=== PATIENT | female | born 1985 | race African-American/Black ===

== ENCOUNTER 2016-04-14 10:49 | Emergency (ER) | payer OTHER ==
[2016-04-14] MEDS ORDERED: Ketorolac Tromethamine 60 MG/2 ML VIAL ONE (11:24)
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
== END 2016-04-14 11:29 | disposition home or self-care (01) ==
LOC: NAV ERS 10:49
DX: R51 Headache (principal)
CPT/HCPCS: 99283; J1885

== ENCOUNTER 2016-05-04 17:12 | Emergency (ER) | payer OTHER ==
[2016-05-04] MEDS ORDERED: HYDROcodone/Acetaminophen 10/325 mg Tablet ONE (17:27)
[2016-05-04] MEDS ORDERED: Ciprofloxacin 500 MG TAB ONE (17:28)
== END 2016-05-04 17:39 | disposition home or self-care (01) ==
LOC: NAV ERS 17:12
DX: K02.9 Dental caries, unspecified (principal)
CPT/HCPCS: 99282

== ENCOUNTER → 2016-05-29 | Emergency (ER) | payer OTHER | LOC: NAV ERS 11:23 | DX: B86 Scabies (principal) | CPT/HCPCS: 99282 ==

== ENCOUNTER 2016-10-18 16:19 | Emergency (ER) | payer OTHER ==
[2016-10-18 17:50] LABS: PTT 30.9 SEC (22.9-36.1); Prothrombin Time 12.9 SEC (12.0-14.7)
[2016-10-18 17:51] LABS: D-Dimer Test 0.36 *mcg/mL (0.27-0.43)
[2016-10-18 17:56] LABS: Anion Gap 15 mmol/L (10-20); BUN (Urea Nitrogen) 9 mg/dL (7.0-18.7); Calc. Creatinine Clearance 0 mL/min (70-130); Calcium 9.5 mg/dL (7.8-10.44); Carbon Dioxide 24 mmol/L (22-29); Chloride 104 mmol/L (98-107); Estimated GFR-MDRD Greater than 90; Glucose 68 mg/dL (70-105); Potassium 3.5 mmol/L (3.5-5.1); Sodium 139 mmol/L (136-145)
[2016-10-18 17:58] LABS: #Basophils 0.1 thou/uL (0.0-0.2); #Eosinphils 0.3 thou/uL (0.0-0.7); #Lymphocytes 2.2 thou/uL (1.20-3.40); #Monocytes 0.7 thou/uL (0.11-0.59); #Neutrophils 5.6 thou/uL (1.40-6.50); %Basophils 1.4 % (0.0-1.0); %Eosinophils 3.3 % (0.0-10.0); %Lymphocytes 24.6 % (21.0-51.0); %Monocytes 8.1 % (0.0-10.0); %Neutrophils 62.6 % (42.0-75.0); Hemoglobin 13.1 g/dL (12.0-16.0); Mean Corpuscular HGB CONC 30.6 g/dL (32.0-36.0); Mean Corpuscular Hemoglobin 23.3 pg (27.0-31.0); Mean Corpuscular Volume 76.3 fl (81.0-99.0); Mean Platelet Volume 6.4 fL (7.4-10.4); Platelet Count 526 thou/uL (130-400); RBC Distribution Width 15.2 % (11.5-14.5); Red Blood Cell (RBC) Count 5.64 mill/uL (4.20-5.40)
== END 2016-10-18 18:00 | disposition home or self-care (01) ==
LOC: NAV ERS 16:19
DX: M79.662 Pain in left lower leg (principal); M79.661 Pain in right lower leg; M25.572 Pain in left ankle and joints of left foot; M25.571 Pain in right ankle and joints of right foot; M79.672 Pain in left foot; M79.671 Pain in right foot
CPT/HCPCS: 80048; 85025; 85379; 85610; 85730; 99283

== ENCOUNTER 2016-11-09 21:50 | Emergency (ER) | payer OTHER | END 2016-11-09 22:40 | disposition home or self-care (01) | LOC: NAV ERS 21:50 | DX: G43.909 Migraine, unspecified, not intractable, without status migrainosus (principal) | CPT/HCPCS: 99283 ==

== ENCOUNTER 2016-12-17 17:58 | Emergency (ER) | payer OTHER ==
[2016-12-17] MEDS ORDERED: Ondansetron ODT 4 MG TAB ONE ×2 (18:18→19:03)
[2016-12-17 18:29] LABS: Pregnancy Test - Urine (BHCG) Negative (Negative); Pregu Control Bar Appear? YES (CONTROL BAR); Specific Gravity 1.032 (1.002-1.036)
[2016-12-17 18:30] LABS: Pregu Control Background? CLEAR/WHITE (CLR/WHITE)
[2016-12-17 19:47] LABS: #Lymphocytes 1.4 thou/uL (1.20-3.40); #Monocytes 0.5 thou/uL (0.11-0.59); #Neutrophils 13.3 thou/uL (1.40-6.50); %Basophils 0.3 % (0.0-1.0); %Eosinophils 0.2 % (0.0-10.0); %Lymphocytes 9.2 % (21.0-51.0); %Monocytes 3.4 % (0.0-10.0); %Neutrophils 86.9 % (42.0-75.0); Hemoglobin 13.3 g/dL (12.0-16.0); Mean Corpuscular HGB CONC 31.6 g/dL (32.0-36.0); Mean Corpuscular Hemoglobin 23.3 pg (27.0-31.0); Mean Corpuscular Volume 73.6 fl (81.0-99.0); Mean Platelet Volume 5.6 fL (7.4-10.4); Platelet Count 545 thou/uL (130-400); RBC Distribution Width 14.5 % (11.5-14.5); Red Blood Cell (RBC) Count 5.72 mill/uL (4.20-5.40); White Blood Cell (WBC) Count 15.3 thou/uL (4.8-10.8)
[2016-12-17 20:03] LABS: ALT (SGPT) 15 U/L (8-55); AST (SGOT) 9 U/L (5-34); Albumin 4.1 g/dL (3.5-5.0); Alkaline Phosphatase 62 U/L (40-150); Anion Gap 16 mmol/L (10-20); BUN (Urea Nitrogen) 11 mg/dL (7.0-18.7); Bilirubin, Total 0.5 mg/dL (0.2-1.2); Calc. Creatinine Clearance 0 mL/min (70-130); Calcium 9.6 mg/dL (7.8-10.44); Carbon Dioxide 22 mmol/L (22-29); Chloride 106 mmol/L (98-107); Estimated GFR-MDRD Greater than 90; Globulin 4.1 g/dL (2.4-3.5); Glucose 91 mg/dL (70-105); Potassium 3.8 mmol/L (3.5-5.1); Protein, Total 8.2 g/dL (6.0-8.3); Sodium 140 mmol/L (136-145)
[2016-12-17 20:16] LABS: Hypochromia SLIGHT = 6-15 cells (100X) (0-5/hpf); MDiff Complete? YES; Microcytosis SLIGHT = 6-15 cells (100X) (0-5/hpf); PLT Morphology Comment Appears Adequate
== END 2016-12-17 19:45 | disposition home or self-care (01) ==
LOC: NAV ERS 17:58
DX: R11.2 Nausea with vomiting, unspecified (principal); E03.9 Hypothyroidism, unspecified
CPT/HCPCS: 36415; 80053; 81025; 85025; 99284; Q0162

== ENCOUNTER 2017-12-23 19:55 | Emergency (ER) | payer OTHER | END 2017-12-23 20:16 | disposition home or self-care (01) | LOC: NAV ERS 19:55 | DX: S61.051A Open bite of right thumb without damage to nail, initial encounter (principal); S00.91XA Abrasion of unspecified part of head, initial encounter; E03.9 Hypothyroidism, unspecified; W50.3XXA Accidental bite by another person, initial encounter | CPT/HCPCS: 99283 ==

== ENCOUNTER 2018-01-04 10:39 | Emergency (ER) | payer OTHER | END 2018-01-04 11:05 | disposition home or self-care (01) | LOC: NAV ERS 10:39 | DX: R53.81 Other malaise (principal); R05 Cough; R11.2 Nausea with vomiting, unspecified; R09.89 Other specified symptoms and signs involving the circulatory and respiratory systems; N93.9 Abnormal uterine and vaginal bleeding, unspecified; E03.9 Hypothyroidism, unspecified; R09.81 Nasal congestion | CPT/HCPCS: 99283 ==

== ENCOUNTER 2019-08-15 13:53 | Emergency (ER) | payer MEDICARE ==
[2019-08-15 14:24] LABS: Amphetamine Not Detected (NotDetected); Barbiturates Screen Not Detected (NotDetected); Benzodiazepine Screen Not Detected (NotDetected); Cocaine Metabolite Screen Not Detected (NotDetected); Medtox Control Line Valid? VALID (VALID); Methadone Not Detected (NotDetected); Methamphetamine Not Detected (NotDetected); Opiate Screen Not Detected (NotDetected); Oxycodone Screen Not Detected (NotDetected); Phencyclidine (PCP) Not Detected (NotDetected); Pregnancy Test - Urine (BHCG) Negative (Negative); Pregu Control Background? CLEAR/WHITE (CLR/WHITE); Pregu Control Bar Appear? YES (CONTROL BAR); Specific Gravity 1.028 (1.002-1.036); THC/Cannabinoid Screen Not Detected (NotDetected); Tricyclic Screen Not Detected (NotDetected)
[2019-08-15 14:37] LABS: #Basophils 0.1 thou/uL (0.0-0.2); #Eosinphils 0.2 thou/uL (0.0-0.7); #Lymphocytes 2.2 thou/uL (1.20-3.40); #Monocytes 0.5 thou/uL (0.11-0.59); #Neutrophils 4.8 thou/uL (1.40-6.50); %Basophils 0.7 % (0.0-1.0); %Eosinophils 2.1 % (0.0-10.0); %Lymphocytes 28.6 % (21.0-51.0); %Neutrophils 62.7 % (42.0-75.0); Hemoglobin 13.7 g/dL (12.0-16.0); Mean Corpuscular HGB CONC 29.5 g/dL (32.0-36.0); Mean Corpuscular Hemoglobin 21.7 pg (27.0-31.0); Mean Corpuscular Volume 73.5 fL (78.0-98.0); Mean Platelet Volume 6.4 fL (7.4-10.4); Platelet Count 654 thou/uL (130-400); RBC Distribution Width 16.2 % (11.5-14.5); White Blood Cell (WBC) Count 7.7 thou/uL (4.8-10.8)
[2019-08-15 14:55] LABS: ALT (SGPT) 25 U/L (8-55); AST (SGOT) 17 U/L (5-34); Acetaminophen Less than 6.0 mcg/mL (10.0-30.0); Albumin 4.3 g/dL (3.5-5.0); Alcohol Less than 10 mg/dL (Less than 10); Alkaline Phosphatase 82 U/L (40-110); Anion Gap 13 mmol/L (10-20); BUN (Urea Nitrogen) 7 mg/dL (7.0-18.7); Bilirubin, Total 0.2 mg/dL (0.2-1.2); CK (CPK) 63 U/L (29-168); Calc. Creatinine Clearance 0 mL/min (70-130); Calcium 9.4 mg/dL (7.8-10.44); Carbon Dioxide 22 mmol/L (22-29); Chloride 107 mmol/L (98-107); Estimated GFR-MDRD Greater than 90; Globulin 3.4 g/dL (2.4-3.5); Glucose 100 mg/dL (70-105); Potassium 3.8 mmol/L (3.5-5.1); Protein, Total 7.7 g/dL (6.0-8.3); Salicylate Less than 8.0 mg/dL (15.0-30.0); Sodium 138 mmol/L (136-145)
[2019-08-16] MEDS ORDERED: Sulfameth/Trimethoprim DS 800-160mg TAB ONE (13:46)
== END 2019-08-15 18:55 ==
LOC: NAV ERS 13:53
DX: F20.0 Paranoid schizophrenia (principal); E05.90 Thyrotoxicosis, unspecified without thyrotoxic crisis or storm; F31.9 Bipolar disorder, unspecified
CPT/HCPCS: 80053; 80306; 80307; 81025; 82550; 84443; 85025; 99285

== ENCOUNTER 2019-10-16 14:08 | Emergency (ER) | payer MEDICARE, MEDICAID ==
[2019-10-16 15:21] LABS: #Basophils 0.1 thou/uL (0.0-0.2); #Eosinphils 0.3 thou/uL (0.0-0.7); #Lymphocytes 2.4 thou/uL (1.20-3.40); #Monocytes 0.7 thou/uL (0.11-0.59); #Neutrophils 5.9 thou/uL (1.40-6.50); %Basophils 0.7 % (0.0-1.0); %Eosinophils 3.2 % (0.0-10.0); %Lymphocytes 25.8 % (21.0-51.0); %Monocytes 7.1 % (0.0-10.0); %Neutrophils 63.2 % (42.0-75.0); Hemoglobin 12.2 g/dL (12.0-16.0); Mean Corpuscular HGB CONC 29.7 g/dL (32.0-36.0); Mean Corpuscular Volume 73.8 fL (78.0-98.0); Mean Platelet Volume 6.5 fL (7.4-10.4); Platelet Count 639 thou/uL (130-400); RBC Distribution Width 15.2 % (11.5-14.5); Red Blood Cell (RBC) Count 5.56 mill/uL (4.20-5.40); White Blood Cell (WBC) Count 9.3 thou/uL (4.8-10.8)
[2019-10-16 15:23] LABS: BHCG - Serum Negative (NEGATIVE); Pregs Control Bar Appear? YES (CONTROL BAR)
== END 2019-10-16 15:30 | disposition home or self-care (01) ==
LOC: NAV ERS 14:08
DX: N92.0 Excessive and frequent menstruation with regular cycle (principal); E05.90 Thyrotoxicosis, unspecified without thyrotoxic crisis or storm; F31.9 Bipolar disorder, unspecified; F20.9 Schizophrenia, unspecified
CPT/HCPCS: 84703; 85025; 99284

== ENCOUNTER 2020-01-03 11:18 | Emergency (ER) | payer MEDICARE, MEDICAID ==
[2020-01-03] MEDS ORDERED: Ibuprofen 100 MG/5 ML UDCUP ONE (11:42)
== END 2020-01-03 11:50 | disposition home or self-care (01) ==
LOC: NAV ERS 11:18
DX: T63.301A Toxic effect of unspecified spider venom, accidental (unintentional), initial encounter (principal); F31.9 Bipolar disorder, unspecified; Z79.899 Other long term (current) drug therapy
CPT/HCPCS: 99283

== ENCOUNTER 2020-01-10 10:28 | Emergency (ER) | payer MEDICARE, MEDICAID ==
[2020-01-10 11:17] LABS: Pregnancy Test - Urine (BHCG) Negative (Negative); Pregu Control Background? CLEAR/WHITE (CLR/WHITE); Pregu Control Bar Appear? YES (CONTROL BAR); Specific Gravity 1.018 (1.002-1.036)
[2020-01-10] MEDS ORDERED: Ketorolac Tromethamine 60 MG/2 ML VIAL ONE (11:35)
== END 2020-01-10 11:47 | disposition home or self-care (01) ==
LOC: NAV ERS 10:28
DX: R51.9 Headache, unspecified (principal); F31.9 Bipolar disorder, unspecified
CPT/HCPCS: 81025; 96372; 99284; J1885

== ENCOUNTER 2020-02-07 10:37 | Emergency (ER) | payer MEDICARE, MEDICAID | END 2020-02-07 10:48 | disposition left against medical advice (07) | LOC: NAV ERS 10:37 | DX: Z53.21 Procedure and treatment not carried out due to patient leaving prior to being seen by health care provider (principal) ==

== ENCOUNTER 2020-02-22 12:02 | Emergency (ER) | payer MEDICARE, MEDICAID ==
[2020-02-22] MEDS ORDERED: Ketorolac Tromethamine 30 MG/ML VIAL ONE (12:39)
== END 2020-02-22 12:49 | disposition home or self-care (01) ==
LOC: NAV ERS 12:02
DX: G44.209 Tension-type headache, unspecified, not intractable (principal); F41.9 Anxiety disorder, unspecified; F32.9 Major depressive disorder, single episode, unspecified; F25.9 Schizoaffective disorder, unspecified; Z79.899 Other long term (current) drug therapy
CPT/HCPCS: 96374; J1885

== ENCOUNTER 2020-04-13 17:03 | Emergency (ER) | payer MEDICARE, MEDICAID ==
[2020-04-13] MEDS ORDERED: Ondansetron ODT 4 MG TAB ONE (17:20)
== END 2020-04-13 17:55 | disposition home or self-care (01) ==
LOC: NAV ERS 17:03
DX: R11.2 Nausea with vomiting, unspecified (principal); G44.209 Tension-type headache, unspecified, not intractable
CPT/HCPCS: 99284; Q0162

== ENCOUNTER 2020-05-29 11:29 | Emergency (ER) | payer OTHER ==
[2020-05-29] MEDS ORDERED: Dexamethasone 4 mg/ml Vial ONE (11:57)
[2020-05-29] MEDS ORDERED: Ketorolac Tromethamine 30 MG/ML VIAL ONE (11:57)
[2020-05-29] MEDS ORDERED: Metoclopramide HCl 10 MG/2 ML VIAL ONE (11:57)
== END 2020-05-29 12:05 | disposition home or self-care (01) ==
LOC: NAV ERS 11:29
DX: R51.9 Headache, unspecified (principal); I10 Essential (primary) hypertension
CPT/HCPCS: 93005; J1100; J1885; J2765

== ENCOUNTER 2023-01-18 17:38 | Emergency (ER) | payer OTHER, MEDICAID ==
[2023-01-18] MEDS ORDERED: predniSONE 20 MG TAB ONE (18:06)
[2023-01-18] MEDS ORDERED: Ketorolac Tromethamine 60 MG/2 ML VIAL ONE (18:06)
== END 2023-01-18 18:23 | disposition home or self-care (01) ==
LOC: NAV ERS 17:38
DX: L23.89 Allergic contact dermatitis due to other agents (principal); R51.9 Headache, unspecified
CPT/HCPCS: 96372; 99283; J1885; J7512

== ENCOUNTER 2024-01-28 08:58 | Emergency (ER) | payer MEDICARE, MEDICAID ==
[2024-01-28] MEDS ORDERED: Metoclopramide HCl 10 MG TAB ONE (09:19)
== END 2024-01-28 09:32 | disposition home or self-care (01) ==
LOC: NAV ERS 08:58
DX: R51.9 Headache, unspecified (principal)
CPT/HCPCS: 99283

== ENCOUNTER 2024-01-29 00:40 | Emergency (ER) | payer MEDICARE, OTHER | END 2024-01-29 01:05 | disposition home or self-care (01) | LOC: NAV ERS 00:40 | DX: R51.9 Headache, unspecified (principal); Z60.9 Problem related to social environment, unspecified | CPT/HCPCS: 99281 ==